=== PATIENT | male | born 1990 | race African-American/Black ===

== ENCOUNTER 2019-01-29 17:41 | Emergency (ER) | payer OTHER ==
[~2019-01-29] VITALS: Ht 175.3 cm; Wt 63.5 kg
[~2019-01-29 17:41] MED LIST: PREDNISONE 20 M20 MG PO; PREDNISONE50 MG PO; PROAIR HFA8.5 GM IH; TESSALON PERLE100 M1 PO; VENTOLIN HFA 1818 GM INH
[2019-01-29 17:42] VITALS: BP 142/100
== END 2019-01-29 19:59 | disposition home or self-care (01) ==
LOC: ER 17:41
DX: S06.0X1A Concussion with loss of consciousness of 30 minutes or less, initial encounter (principal); J45.909 Unspecified asthma, uncomplicated; F10.10 Alcohol abuse, uncomplicated; F17.210 Nicotine dependence, cigarettes, uncomplicated; V43.52XA Car driver injured in collision with other type car in traffic accident, initial encounter; Y93.89 Activity, other specified; Y92.89 Other specified places as the place of occurrence of the external cause; Y99.8 Other external cause status